=== PATIENT | male | born 1995 | race Caucasian/White ===

== ENCOUNTER → 2022-03-04 | Outpatient (CLI) | payer BC ==
--- NOTE | 2022-03-04 11:28 | Diagnostic Imaging Report ---
PROCEDURE: US Gallbladder. TECHNIQUE: Multiple real-time grayscale images were obtained over the right upper quadrant in various projections. INDICATION: Right upper quadrant pain. The liver is normal in size at 15 cm. There is diffuse increased echogenicity throughout the liver consistent with hepatic steatosis. No discrete liver mass is detected. The portal vein is patent and shows normal direction of flow. Gallbladder contains several small stones. No wall thickening or biliary duct dilatation is seen. Pancreas and aorta are obscured. IVC is patent. Right kidney is without calculi or hydronephrosis. There is no ascites. IMPRESSION: 1. Hepatic steatosis. 2. Cholelithiasis without evidence of acute cholecystitis. Dictated by: Dictated on workstation # [id number]
== END ==
LOC: RAD 08:56
PROVIDERS: ATTEND Nurse Practitioner Family
DX: K76.0 Fatty (change of) liver, not elsewhere classified (principal); K80.20 Calculus of gallbladder without cholecystitis without obstruction; K21.9 Gastro-esophageal reflux disease without esophagitis
CPT/HCPCS: 76705

== ENCOUNTER 2022-03-25 05:32 | Outpatient (CLI) | payer BC ==
[~2022-03-25] VITALS: Ht 173 cm; Wt 105.0 kg
[2022-03-25] MEDS ORDERED: ALB0.5V INH (10:42)
[2022-03-25] MEDS ORDERED: FEXO-14 PO (10:42)
[2022-03-25] MEDS ORDERED: PANT40TA52 PO (10:42)
== END 2022-03-25 10:49 | disposition home or self-care (01) ==
LOC: PREOP 05:32
PROVIDERS: ATTEND Surgery
DX: Z01.818 Encounter for other preprocedural examination (principal)

== ENCOUNTER 2022-03-28 10:28 | Day surgery (SDC) | payer BC ==
[2022-03-28] VITALS (10 sets, daily range): BP systolic 125–172; BP diastolic 79–99
[~2022-03-28] VITALS: Ht 173 cm; Wt 105.0 kg
[~2022-03-28 10:28] MED LIST: ALB0.5V INH; FEXO-14 PO; PANT40TA52 PO
[2022-03-28] MEDS ORDERED: CLINDAMYCIN 600 MG/50 ML IVPB 50 ML IV ONE (10:30)
[2022-03-28] MEDS ORDERED: ACETAMINOPHEN 325 MG TABLET PO PRN (10:45)
[2022-03-28] MEDS ORDERED: morphine INJ 10 MG/ML 1ML (SYR OR VIAL) IVP PRN (10:45)
[2022-03-28] MEDS ORDERED: ONDANSETRON 4 MG/2 ML (SDV) Z0FRAN IVP PRN ×2 (10:45→15:45)
[2022-03-28] MEDS ORDERED: HYDROcodone/APAP 5 MG/325 MG (LORTAB) TAB PO ONE (10:45)
--- NOTE | 2022-03-28 10:45 | Progress Note-Pre Operative ---
Pre-Operative Progress Note H&P Reviewed The H&P was reviewed, patient examined and no changes noted. Date Seen by Provider: Mar 28, 2022 Time Seen by Provider: 10:45 Date H&P Reviewed: Mar 28, 2022 Time H&P Reviewed: 10:40 Pre-Operative Diagnosis: Chronic calculous cholecystitis NESTOR KAN APRN Mar 28, 2022 10:45
[2022-03-28] MEDS ORDERED: HYDR-3817 PO (10:47)
--- NOTE | 2022-03-28 10:47 | Discharge Inst-Surgical ---
D/C Lap Instructions-KIDO Reconcile Patient Problems Problems Reviewed?: Yes New, Converted, or Re-Newed RX: RX on Chart Follow Up Appt in 2 weeks Activity as tolerated No driving for 24 hours No driving while on pain medications Incentive Spirometry use every 2 hours while awake Regular Diet Symptoms to Report: Fever over 101 degree F, Nausea/Vomiting Infection Signs and Symptoms to report: Increased redness, Foul odor of wound, Increased drainage Bathing instructions: May shower Operative Area Clean/Dry; Keep incision clean/dry If any problems/questions: Contact your physician or go to Emergency Room NESTOR KAN OIL TANK CAR CLEANER Mar 28, 2022 10:47
[2022-03-28] MEDS: LACTATED RINGERS 1,000 ML IV PRN ×2 (10:54→14:35)
[2022-03-28] MEDS ORDERED: BUP/EPI 0.5% 1:200,000 (SENSORCAINE) 30 ML VIAL ONE (12:07)
[2022-03-28] MEDS ORDERED: MIDAZOLAM 2 MG/2 ML (VERSED) VIAL ONE (13:36)
[2022-03-28] MEDS ORDERED: ONDANSETRON 4 MG/2 ML (SDV) Z0FRAN ONE (13:36)
[2022-03-28] MEDS ORDERED: NEOSTIGMINE 3 MG/3 ML VIAL ONE (13:36)
[2022-03-28] MEDS ORDERED: fentaNYL INJ 100 MCG/2 ML AMP ONE ×2 (13:36→15:44)
[2022-03-28] MEDS ORDERED: proPOfol 200 MG/20 ML (DIPRIVAN) VIAL IV ONE ×2 (13:36→15:16)
[2022-03-28] MEDS ORDERED: LIDOCAINE PF 2% 5 ML (XYLOCAINE) VIAL ONE (13:36)
[2022-03-28] MEDS ORDERED: GLYCOPYRROLATE 0.2 MG/ML (ROBINUL) 2 ML VIAL ONE (13:36)
[2022-03-28] MEDS ORDERED: ROCURONIUM 50 MG/5 ML (ZEMURON) VIAL IV ONE (13:36)
--- NOTE | 2022-03-28 15:28 | Progress Note-Post Operative ---
Post-Operative Progess Note Surgeon (s)/Shoeblack (s) Surgeon FLOYD LOWE MD Shoeblack: marilyn jackman ESCROW CLOSER Pre-Operative Diagnosis Chronic calculous cholecystitis Post-Operative Diagnosis same Procedure & Operative Findings Date of Procedure 03/28/22 Procedure Performed/Findings laparoscopic cholecystectomy Anesthesia Type get Estimated Blood Loss Estimated blood loss (mL): minimal Specimens/Packing Specimens Removed gallbladder FLOYD LOWE MD Mar 28, 2022 15:27
[2022-03-28] MEDS ORDERED: SEVOFLURANE (ULTANE) 15 ML INHAL SOLN ONE (15:29)
[2022-03-28] MEDS ORDERED: HYDROmorphone 2 MG/ML VIAL (DILAUDID) IV ONE (15:45)
[2022-03-28] MEDS ORDERED: morphine INJ 10 MG/ML 1ML (SYR OR VIAL) IVP ONE (15:45)
[2022-03-28] MEDS ORDERED: fentaNYL INJ 100 MCG/2 ML AMP IVP ONE (15:45)
--- NOTE | 2022-03-28 15:45 | Anesthesia-General Post-Op ---
General Patient Condition Mental Status/LOC: Same as Preop Cardiovascular: Satisfactory Nausea/Vomiting: Absent Respiratory: Satisfactory Pain: Controlled Complications: Absent Post Op Complications Complications None Follow Up Care/Instructions Patient Instructions None needed. Anesthesia/Patient Condition Patient Condition Patient is doing well, no complaints, stable vital signs, no apparent adverse anesthesia problems. No complications reported per nursing. RENAE MARI CRNA Mar 28, 2022 15:45
[2022-03-28] MEDS ORDERED: HYDROcodone/APAP 5 MG/325 MG (LORTAB) TAB ONE (16:38)
--- NOTE | 2022-03-29 00:37 | OPERATIVE REPORT ---
DATE OF SERVICE: 03/28/2022 ATTENDING PRIMARY CARE PHYSICIAN: Rosa Isela Trinh MD PREOPERATIVE DIAGNOSIS: Symptomatic chronic calculous cholecystitis. POSTOPERATIVE DIAGNOSIS: Symptomatic chronic calculous cholecystitis. PROCEDURE: Laparoscopic cholecystectomy. SURGEON: Floyd Lowe MD LIBRARIAN SPECIALIST: John Middleton APRN. ANESTHESIA: General endotracheal. ESTIMATED BLOOD LOSS: Minimal. FINDINGS: Symptomatic chronic calculous cholecystitis. DISPOSITION: The patient tolerated the procedure well. INDICATIONS: The patient is a 26-year-old male who states that for the past 2 months, he has had significant pain in the right upper abdominal quadrant usually after eating meals with associated abdominal bloating as well as nausea. He states that this has progressively become more frequent as well as more severe in nature. He underwent an ultrasound and was found to have gallstones. DESCRIPTION OF PROCEDURE: The patient brought to the operating room, laid supine on the table. After adequate IV pain and sedative medications and general endotracheal intubation, the abdomen was prepped and draped in standard surgical fashion. A 0.5% Marcaine with epinephrine was used to anesthetize overlying skin in the left upper abdominal quadrant and a transverse skin incision made using 15 blade. An 0 silk suture was applied to the medial aspect incision for retraction and a Veress needle inserted with a low opening pressure of 0 mmHg. The abdomen was then insufflated to 15 mmHg pressure. The Veress needle removed and a 5 mm XL trocar placed followed by a 5 mm 45-degree angle laparoscope visualizing the peritoneal cavity. A 4-quadrant abdominal exploration was performed. There was distended gallbladder, no gallbladder wall thickening. Under direct visualization, we then proceeded to place a supraumbilical 10 mm port after the skin and peritoneal lining were anesthetized using 0.5% Marcaine with epinephrine and a transverse skin incision made using 15 blade. In a similar manner, a right upper abdominal quadrant 5 mm port was placed. The patient was then placed in steep reverse Trendelenburg position as well as plane right side up, left side down. The fundus of the gallbladder was retracted anteriorly and superiorly. The hepatoduodenal ligament was then opened using cautery on hook instrument as well as a [place] dissector identifying the critical view of safety including the triangle of Calot as well as the cystic duct and artery as only two structures going into the gallbladder as well as the cystic plate behind the proximal gallbladder. A timeout was then taken and the cystic duct and artery were then clipped proximally, distally and cut with EndoShears. The gallbladder was then dissected off the liver bed using cautery on hook instrument with visualization of good hemostasis as well as no leaking ducts of Luschka. The gallbladder was removed through the 10 mm port site using an EndoCatch bag. The 10 mm port site fascia and peritoneum were then closed under direct visualization using a Gray-Lauren device and an 0 Vicryl suture. The abdomen was desufflated and remaining ports removed. All skin incisions were closed using 4-0 Monocryl running subcuticular sutures. Wounds were then cleaned and covered with Dermabond. The patient tolerated the procedure well. We will start IV and oral pain medication as well as a clear liquid diet. When he is tolerating clears, he has good pain control with oral pain medication and is ambulating well, we will discharge him home where he will be instructed on no heavy lifting or exertion for the next two weeks. Job ID: [id number] DocumentID: [id number] Dictated Date: 03/28/2022 15:32:20 Tube Tester Date: 03/29/2022 00:36:56 Dictated By: FLOYD LOWE MD
== END 2022-03-28 17:34 | disposition home or self-care (01) ==
LOC: SDC 10:28
PROVIDERS: ATTEND Surgery
DX: K80.10 Calculus of gallbladder with chronic cholecystitis without obstruction (principal); Z88.0 Allergy status to penicillin; K21.9 Gastro-esophageal reflux disease without esophagitis; Z79.899 Other long term (current) drug therapy
CPT/HCPCS: 87081; 94664